=== PATIENT | male | born 1975 | race Asian ===

== ENCOUNTER → 2020-11-01 | Outpatient (CLI) | payer MEDICARE, OTHER ==
[~2020-11-01] MED LIST: AMLO-258 PO; ATOR20TA86 PO; EPOE10I SQ; LISI-893 PO; SITA50 PO; SODI650T33 PO
== END | disposition home or self-care (01) ==
LOC: RADMN 15:47
PROVIDERS: ATTEND Internal Medicine Nephrology
DX: Z11.1 Encounter for screening for respiratory tuberculosis (principal); I70.0 Atherosclerosis of aorta
CPT/HCPCS: 71045